=== PATIENT | female | born 1995 | race Caucasian/White ===

== ENCOUNTER 2018-12-23 12:38 | Emergency (ER) | payer OTHER ==
[2018-12-23] MEDS ORDERED: NORMAL SALINE 1000 ML 1,000 ML IV ONE (13:11)
--- NOTE | 2018-12-23 13:11 | ER Document Report ---
ED Medical Screen (RME) - General Chief Complaint: Post Problem Stated Complaint: WOUND CHECK Time Seen by Provider: 12/23/18 13:02 TRAVEL OUTSIDE OF THE [place] IN LAST 30 DAYS: No - HPI Notes: 12/23/18 13:07 Patient is a 23-year-old female who had a performed on the who presents complaining of bleeding from her wound. Patient states that her Steri-Strips were removed this past and she was seen by [facility] yesterday because the wound opened and was pulsating blood from the wound all over her bathroom. She states that [facility] cauterized and packed the wound. Patient states that today about an hour ago the wound started bleeding again that she is here for evaluation. Patient states that she did have low platelets during . She did not need any transfusion. Denies drug allergies. Denies HOLLEY, fever, neck pain, URI, CP, SOB, Abd pain, dysuria, back pain, or rash. I have treated and performed a rapid initial assessment of this patient. A comprehensive ED assessment and evaluation of the patient, analysis of test results and completion of medical decision making process will be conducted by additional ED providers. PHYSICAL EXAMINATION: GENERAL: Well-appearing, well-nourished and in no acute distress. A&Ox4. Answers questions appropriately. LUNGS: Breath sounds clear to auscultation bilaterally and equal. No wheezes rales or rhonchi. HEART: Regular rate and rhythm without murmurs, rubs, gallops. ABDOMEN: Soft, nondistended abdomen. Dressing intact with mild bloody discharge noted (cannot elicit thorough abd exam w/o bed and w/o gown, however). No heavy bleeding noted. - Related Data Allergies/Adverse Reactions: No Known Allergies Allergy (Unverified 12/23/18 12:45) Physical Exam - Vital signs Vitals: Temp Pulse Resp BP Pulse Ox 98.9 F 132 H 16 156/92 H 98 12/23/18 12:50 12/23/18 12:50 12/23/18 12:50 12/23/18 12:50 12/23/18 12:50 Course - Vital Signs Vital signs: Temp Pulse Resp BP Pulse Ox 98.9 F 132 H 16 156/92 H 98 12/23/18 12:50 12/23/18 12:50 12/23/18 12:50 12/23/18 12:50 12/23/18 12:50
[2018-12-23 13:35] LABS: ABSOLUTE EOSINOPHILS # (AUTO) 0.1 10^3/uL (0.0-0.6); ABSOLUTE MONOCYTES (AUTO) 0.6 10^3/uL (0.1-1.4); ABSOLUTE NEUT (AUTO) 6.1 10^3/uL (1.7-8.2); BASOPHILS % (AUTO) 0.2 % (0-2); EOSINOPHILS % (AUTO) 0.9 % (0-6); HEMATOCRIT 34.4 % (36.0-47.0); HEMOGLOBIN 11.5 g/dL (12.0-15.5); LYMPHOCYTES % (AUTO) 23.1 % (13-45); MEAN CORPUSCULAR HEMOGLOBIN 30.2 pg (27.0-33.4); MEAN CORPUSCULAR HGB CONC 33.5 g/dL (32.0-36.0); MEAN CORPUSCULAR VOLUME 90 fl (80-97); MONOCYTES % (AUTO) 6.6 % (3-13); PLATELET COUNT 304 10^3/uL (150-450); RED BLOOD COUNT 3.82 10^6/uL (3.72-5.28); RED CELL DISTRIBUTION WIDTH 14.2 % (11.5-14.0); SEGMENTED NEUTROPHILS % (AUTO) 69.2 % (42-78); TOTAL CELLS COUNTED % (AUTO) 100 %; WHITE BLOOD COUNT 8.8 10^3/uL (4.0-10.5)
[2018-12-23 13:58] LABS: ANION GAP 10 (5-19); BLOOD UREA NITROGEN 10 mg/dL (7-20); CALCIUM 9.5 mg/dL (8.4-10.2); CARBON DIOXIDE 26 mmol/L (22-30); CHLORIDE 105 mmol/L (98-107); GLUCOSE 90 mg/dL (75-110); POTASSIUM 4.1 mmol/L (3.6-5.0)
--- NOTE | 2018-12-23 15:41 | ER Document Report ---
ED General - General Chief Complaint: Post Problem Stated Complaint: WOUND CHECK Time Seen by Provider: 12/23/18 13:02 Mode of Arrival: Ambulatory Information source: Patient Notes: This 23-year-old healthy female presents the emergency department with report that her surgical site has opened and is draining. Patient reports she had a on December 13. She was discharged on Sunday the for the sutures were removed and Steri-Strips were applied. She reports she had a follow-up visit on that at which provider removed the Steri-Strips. This past Sunday she noted a opening in her surgical site. She reports it was bleeding. She went to [facility] where they cauterized did input some quick clot in the area. She returns to our emergency department today because the area is still draining. She denies fever vomiting diarrhea. She reports at was her first . She reports [place] [facility] performed a at [facility]. She is tried to get another follow-up visit with them but has been unsuccessful. TRAVEL OUTSIDE OF THE [place] IN LAST 30 DAYS: No - HPI Onset: Other Onset/Duration: Persistent Quality of pain: Achy Associated symptoms: None Exacerbated by: Movement Relieved by: Denies Similar symptoms previously: Yes Recently seen / treated by doctor: Yes - Related Data Allergies/Adverse Reactions: No Known Allergies Allergy (Unverified 12/23/18 12:45) Past Medical History - General Information source: Patient Last Menstrual Period: December 13, 2018 - Social History Smoking Status: Never Smoker Chew tobacco use (# tins/day): No Frequency of alcohol use: None Drug Abuse: None Lives with: Family Family History: None Patient has suicidal ideation: No Patient has homicidal ideation: No - Medical History Medical History: Negative Renal/ Medical History: Denies: Hx Peritoneal Dialysis Past Surgical History: Reports: Hx Section Review of Systems - Review of Systems Notes: -Review HPI for review of systems., All other systems negative Physical Exam - Vital signs Vitals: Temp Pulse Resp BP Pulse Ox 98.9 F 132 H 16 156/92 H 98 12/23/18 12:50 12/23/18 12:50 12/23/18 12:50 12/23/18 12:50 12/23/18 12:50 - Notes Notes: PHYSICAL EXAMINATION: GENERAL: Well-appearing and in no acute distress HEAD: Atraumatic, normocephalic. EYES: Pupils equal round extraocular movements intact, sclera anicteric, conjunctiva are normal. ENT: nares patent, Moist mucous membranes. NECK: Normal range of motion, supple LUNGS: Respiratory rate even unlabored HEART: regular BACK:Denies pain ABDOMEN: Soft,ttp, c section surgical site open ~ 2 cm on the right side draining serous sanguinous drainage, no guarding, no rebound no erythema, no warmth EXTREMITIES: Normal range of motion, NEUROLOGICAL: Cranial nerves grossly intact. PSYCH: Normal mood, normal affect. SKIN: Warm, Dry, normal turgor, no rashes or lesions noted Course - Re-evaluation Re-evalutation: 12/23/18 This 23-year-old female presents to the emergency department post with complaints of her surgical site opening and draining. She has been evaluated by her [employer] and also [facility] yesterday. Denies fever vomiting diarrhea. Patient is breast-feeding without problems. Labs unremarkable. Serosanguineous drainage noted. No erythema warmth or swelling noted around the surgical site. Area closed with Steri-Strips and dressing. OB appointment obtained for patient tomorrow at 3:00 PM. Patient was instructed on the importance of follow-up with the EXPLOSIVE TECHNICIAN for review of the surgical site. She verbalized understanding to all instructions. 12/23/18 13:17 12/23/18 13:17 MCV 90 fl (80-97) 12/23/18 13:17 MCH 30.2 pg (27.0-33.4) 12/23/18 13:17 MCHC 33.5 g/dL (32.0-36.0) 12/23/18 13:17 RDW 14.2 % (11.5-14.0) H 12/23/18 13:17 Seg Neutrophils % 69.2 % (42-78) 12/23/18 13:17 Lymphocytes % 23.1 % (13-45) 12/23/18 13:17 Monocytes % 6.6 % (3-13) 12/23/18 13:17 Eosinophils % 0.9 % (0-6) 12/23/18 13:17 Basophils % 0.2 % (0-2) 12/23/18 13:17 Absolute Neutrophils 6.1 10^3/uL (1.7-8.2) 12/23/18 13:17 Absolute Lymphocytes 2.0 10^3/uL (0.5-4.7) 12/23/18 13:17 Absolute Monocytes 0.6 10^3/uL (0.1-1.4) 12/23/18 13:17 Absolute Eosinophils 0.1 10^3/uL (0.0-0.6) 12/23/18 13:17 Absolute Basophils 0.0 10^3/uL (0.0-0.2) 12/23/18 13:17 Chloride 105 mmol/L (98-107) 12/23/18 13:17 Carbon Dioxide 26 mmol/L (22-30) 12/23/18 13:17 Anion Gap 10 (5-19) 12/23/18 13:17 Est GFR ( Amer) > 60 (>60) 12/23/18 13:17 Est GFR (Non-Af Amer) > 60 (>60) 12/23/18 13:17 Glucose 90 mg/dL (75-110) 12/23/18 13:17 Calcium 9.5 mg/dL (8.4-10.2) 12/23/18 13:17 - Vital Signs Vital signs: Temp Pulse Resp BP Pulse Ox 99.0 F 86 16 130/77 H 99 12/23/18 16:49 12/23/18 16:49 12/23/18 16:49 12/23/18 16:49 12/23/18 16:49 - Laboratory Result Diagrams: 12/23/18 13:17 12/23/18 13:17 Laboratory results interpreted by me: 12/23/18 12/23/18 13:17 13:17 Hgb 11.5 L Hct 34.4 L RDW 14.2 H Creatinine 0.48 L Procedures - Laceration/Wound Repair Abdomen Wound length (cm): 2 Wound's Depth, Shape: Superficial Laceration pre-procedure: Shur-Clens applied Wound Repaired With: Steri-strips Discharge - Discharge Clinical Impression: open csection surgical site Condition: Stable Disposition: HOME, SELF-CARE Additional Instructions: *You have been treated for an open surgical site *Follow up with [facility] in [place] tomorrow at 1500 *Take the copy of your labs with you *Return to ED for concerns, worsening condition, changes, needs Monitor your blood pressure. Your blood pressure was elevated today. This may be because you were anxious, in pain or because you need medication. It is important to follow up with your primary care provider for full evaluation. Forms: Elevated Blood Pressure
[2018-12-23 17:01] VITALS: BP 130/77
== END 2018-12-23 17:02 | disposition home or self-care (01) ==
LOC: ER 12:38
PROC: 0HQ7XZZ Repair Abdomen Skin, External Approach (ICD-10-PCS; principal; 2018-12-23)
DX: N99.89 Other postprocedural complications and disorders of genitourinary system (principal)
CPT/HCPCS: 99283; 96360; 36415; 85025; 80048; 12001; J7030

== ENCOUNTER 2019-08-08 07:44 | Day surgery (SDC) | payer OTHER ==
[~2019-08-08 07:44] MED LIST: LIDOCAINE 2% INJ-PF (20 MG/ML) 10 ML AMPUL ONE; PROPOFOL INJ 200 MG/20 ML VIAL IV ONE
[2019-08-08 10:27] VITALS: BP 113/66
--- NOTE | 2019-08-08 11:24 | Operative Report ---
Operative Report DATE OF SURGERY: 08/08/19 Operative Report: Risk, benefits and alternatives of the procedure including the risk of bleeding, perforation requiring surgery have been explained to the patient in detail and informed consent has been obtained. Patient is placed in a left, lateral decubital position. Timeout was called. Propofol medication is administered. Rectal examination is done which did not reveal any masses, tears or fissures. An Olympus videoscope was inserted into the patient's rectum. Scope was then carefully advanced all the way to the cecum. Cecum was identified by the usual anatomical landmarks including the ileocecal valve as well as appendiceal office. Photodocumentation is obtained. Scope was then sequentially pulled back via the various segments of the colon including the ascending colon, back flexure, transverse colon, splenic flexure, descending colon and finally into the rectosigmoid portions of the colon. Retroflexion maneuvers performed. The risks benefits and alternatives of the procedure explained to the patient in detail and informed consent is obtained.A GIF Olympus video scope was inserted into the patient's mouth and hypopharynx, the esophagus is identified intubated and insufflated ,the scope was then advanced through the esophagus stomach and duodenum ,retroflexion maneuver is done ,the esophagus stomach and first and second portions of the duodenum examined PREOPERATIVE DIAGNOSIS: Change in bowel habits. Nausea. Abdominal bloating POSTOPERATIVE DIAGNOSIS: Random biopsies in the terminal ileum rule out Crohn's disease. Gastritis status post biopsy rule out Helicobacter pylori OPERATION: Colonoscopy with biopsy. EGD with biopsy SURGEON: WENDI SOTO ANESTHESIA: LMAC TISSUE REMOVED OR ALTERED: As noted above. COMPLICATIONS: None. ESTIMATED BLOOD LOSS: None. INTRAOPERATIVE FINDINGS: As noted above. PROCEDURE: Patient tolerated the procedure well. No immediate postprocedure complications are noted. Patient is discharged in good condition. Discharge date 08/08/2019. Discharge diet: Regular. Discharge activity: Regular. 2 to 3-week follow-up to discuss findings. Patient is instructed call the office or proceed to the emergency room should there be any further problems or questions. Wait on the pathology.
== END 2019-08-08 10:31 | disposition home or self-care (01) ==
LOC: END 07:44
PROVIDERS: ATTEND Internal Medicine Gastroenterology
DX: K29.50 Unspecified chronic gastritis without bleeding (principal); K92.1 Melena; R19.4 Change in bowel habit; Z79.899 Other long term (current) drug therapy; D64.9 Anemia, unspecified
CPT/HCPCS: 43239; 45380; 88305 ×2; 00813; J2704; J3490; 813